=== PATIENT | male | born 1995 ===

== ENCOUNTER 2017-06-17 21:12 | Emergency (ER) | payer SELFPAY ==
[2017-06-17 21:27] VITALS: RESP 18
--- NOTE | 2017-06-17 22:01 | C.PDOC ---
History Of Present Illness Patient is a 22 y/o male who presents to the ED BIBA s/p being found on the street with acute EtOH intoxication. Patient was AAOx1 initially but was unable to provide history due to inebriation; responds to painful stimuli. No other physical complaints at this time. Time Seen by Provider: 06/17/17 22:01 Chief Complaint (Nursing): Substance Abuse History Per: Patient History/Exam Limitations: no limitations Onset/Duration Of Symptoms: Hrs ([employer]) Current Symptoms Are (Timing): Still Present Modifying Factor(s): Alcohol Recent travel outside of the [place]: No Past Medical History Reviewed: Historical Data, Nursing Documentation, Vital Signs Vital Signs: Last Vital Signs Temp 98 F 06/18/17 00:14 Pulse 73 06/18/17 00:14 Resp 18 06/18/17 00:14 BP 106/58 L 06/18/17 00:14 Pulse Ox 99 06/18/17 00:14 - Medical History PMH: No Chronic Diseases Surgical History: No Surg Hx Family History: States: No Known Family Hx - Social History Hx Tobacco Use: No (unknown if ever smoked) Hx Alcohol Use: Yes Hx Substance Use: No (UNABLE TO OBTAIN) - Immunization History Hx Tetanus Toxoid Vaccination: (UNABLE TO OBTAIN) Hx Influenza Vaccination: (UNABLE TO OBTAIN) Hx Pneumococcal Vaccination: (UNABLE TO OBTAIN) Review Of Systems Review Of Systems: ROS cannot be obtained secondary to pt's inabilty to answer questions. Neurological: Positive for: Other (acute EtOH intoxication) Physical Exam - Physical Exam Appears: No Acute Distress Skin: Warm, Dry, Other (superficial 2cm abrasian over right thenar region) Head: Normacephalic Oral Mucosa: Moist Chest: Symmetrical Cardiovascular: Rhythm Regular Respiratory: No Rales, No Rhonchi, No Wheezing Gastrointestinal/Abdominal: Soft, No Tenderness Extremity: Normal ROM Neurological/Psych: Other (AAOx1) Gait: Unsteady ED Course And Treatment - Laboratory Results Result Diagrams: 06/17/17 22:43 06/17/17 22:43 O2 Sat by Pulse Oximetry: 100 Pulse Ox Interpretation: Normal - CT Scan/US CT Head Other Rad Studies (CT/US): Interpreted By Me, Read By Radiologist CT/US Interpretation: EXAM: CT Head Without Intravenous Contrast. EXAM DATE/ TIME: 06/17/2017 10:11 PM. CLINICAL HISTORY: 22 years old, male; Signs and symptoms; Other: Intoxicated; Additional info: R/O bleed. TECHNIQUE: Axial computed tomography images of the head/brain without intravenous contrast. All CT scans at. this facility use one or more dose reduction techniques, viz.: automated exposure control; ma/kV. adjustment per patient size (including targeted exams where dose is matched to indication; i.e. head);. or iterative reconstruction technique. COMPARISON: No relevant prior studies available. FINDINGS: No intracranial hemorrhage. No intracranial edema. No evidence of infarct. The sinuses and mastoid air cells are clear. IMPRESSION: No acute findings. Thank you for allowing us to participate in the care of your patient. Progress Note: Plan: UA, drug screen, and blood work ordered. IV fluids administered. 1 hour after arrival on re-evaluation, patient is much more awake and alert and requests to be discharged; gait is still slightly unsteady and will be discharged upon full sobriety. pt's parents at bed side. they said they bernice take responsibility for his discharge. Pt ambulating without difficulty Reevaluation Time: 00:21 Reassessment Condition: Improved Disposition Counseled Patient/Family Regarding: Studies Performed, Diagnosis, Need For Followup - Disposition Referrals: [facility] [Outside] Disposition: HOME/ ROUTINE Disposition Time: 22:01 Condition: FAIR Instructions: Alcohol Intoxication (DC), Abrasion (ED) Forms: [facility] (Slovak) Print Language: CYPRIOT - Clinical Impression Clinical Impression: Alcohol intoxication - Scribe Statement The provider has reviewed the documentation as recorded by the Scribe Maura Campbell All medical record entries made by the Scribe were at my direction and personally dictated by me. I have reviewed the chart and agree that the record accurately reflects my personal performance of the history, physical exam, medical decision making, and the department course for this patient. I have also personally directed, reviewed, and agree with the discharge instructions and disposition.
[2017-06-17] MEDS ORDERED: Sodium Chloride 0.9% 1,000 ML IV ONE (22:11)
[2017-06-17 22:48] LABS: BASO % 0.2 % (0.0-2.0); EOS % 0.2 % (0.0-4.0); HEMOGLOBIN 15.9 g/dL (12.0-18.0); LYMPH # 1.2 K/uL (1.0-4.3); LYMPH % 6.3 % (20.0-40.0); MEAN CELL VOLUME 85.2 fL (80.0-94.0); MEAN CORPUSCULAR HEMOGLOBIN 29.6 pg (27.0-31.0); MEAN CORPUSCULAR HGB CONC 34.7 g/dL (33.0-37.0); MEAN PLATELET VOLUME 7.8 fL (7.2-11.7); MONO # 0.4 K/uL (0.0-0.8); MONO % 2.2 % (0.0-10.0); NEUT # 16.7 K/uL (1.8-7.0); NEUT % 91.1 % (50.0-75.0); PLATELET COUNT 290 K/uL (130-400); RBC 5.38 Mil/uL (4.40-5.90); RED CELL DISTRIBUTION WIDTH 13.4 % (11.5-14.5); WHITE BLOOD COUNT 18.3 K/uL (4.8-10.8)
[2017-06-17 23:01] LABS: ALB/GLOB RATIO 1.3 (1.0-2.1); ALBUMIN 4.7 g/dL (3.5-5.0); ALT/SGPT 51 U/L (21-72); AST/SGOT 45 U/L (17-59); BLOOD UREA NITROGEN 14 mg/dL (9-20); CALCIUM 8.8 mg/dl (8.6-10.4); GFR AFRICAN-AMERICAN > 60; GFR NON-AFRICAN AMERICAN > 60
[2017-06-17 23:02] LABS: PROTHROMBIN TIME 11.1 SECONDS (9.7-12.2)
--- NOTE | 2017-06-17 23:07 | CT ---
EXAM: CT Head Without Intravenous Contrast EXAM DATE/TIME: 06/17/2017 10:11 PM CLINICAL HISTORY: 22 years old, male; Signs and symptoms; Other: Intoxicated; Additional info: R/O bleed TECHNIQUE: Axial computed tomography images of the head/brain without intravenous contrast. All CT scans at this facility use one or more dose reduction techniques, viz.: automated exposure control; ma/kV adjustment per patient size (including targeted exams where dose is matched to indication; i.e. head); or iterative reconstruction technique. COMPARISON: No relevant prior studies available. FINDINGS: No intracranial hemorrhage. No intracranial edema. No evidence of infarct. The sinuses and mastoid air cells are clear. IMPRESSION: No acute findings.
[2017-06-17 23:40] LABS: LYMPHOCYTE 8 % (20-40); MONOCYTE 4 % (0-10); NEUTROPHIL 88 % (50-75); PLATELET ESTIMATE NORMAL (NORMAL); TOTAL CELLS COUNTED 100
[2017-06-18 00:14] VITALS: BP 106/58; PULSE 73; TEMP 98
[2017-06-18 00:23] VITALS: O2SAT 100
== END 2017-06-18 00:28 | disposition home or self-care (01) ==
LOC: C.ER 21:12
DX: F10.129 Alcohol abuse with intoxication, unspecified (principal); Y90.8 Blood alcohol level of 240 mg/100 ml or more
CPT/HCPCS: 70450; 80053; 85025; 85610; 85730; 99284; G0480